=== PATIENT | female | born 1950 | race Caucasian/White ===

== ENCOUNTER 2018-06-11 17:29 | Inpatient (IN) | payer MEDICARE, MEDICAID ==
[~2018-06-11] VITALS: Ht 162.6 cm; Wt 54.5 kg
[2018-06-11] MEDS ORDERED: TOPI25 PO (17:43)
[2018-06-11] MEDS ORDERED: BACL10TA PO (17:43)
[2018-06-11] MEDS ORDERED: PARO10TA89 PO (17:43)
[2018-06-11] MEDS ORDERED: LEVE500T53 PO (17:43)
[2018-06-11] MEDS ORDERED: LORA0.5T2 PO (17:43)
[2018-06-11] MEDS ORDERED: ZOLP10TA7 PO (17:43)
[2018-06-11] MEDS ORDERED: AMIT10TA6 PO (17:43)
[2018-06-11 18:20] LABS: BASOPHILS % (AUTO) 0.6 % (0.0-2.0); EOSINOPHILS % (AUTO) 0.7 % (1.0-6.0); HEMATOCRIT 39.9 % (36-46); HEMOGLOBIN 13.5 g/dL (12.0-16.0); LYMPHOCYTES # (AUTO) 4.2 K/uL (1.0-4.8); LYMPHOCYTES % (AUTO) 59.5 % (22.0-44.0); MEAN CORPUSCULAR HEMOGLOBIN 31.5 pg (26.0-34.0); MEAN CORPUSCULAR HGB CONC 33.8 G/dL (31.0-37.0); MEAN CORPUSCULAR VOLUME 93 fL (80-100); MONOCYTES # (AUTO) 0.4 K/uL (0.1-1.0); MONOCYTES % (AUTO) 5.3 % (2.0-9.0); NEUTROPHILS # (AUTO) 2.4 K/uL (1.8-7.7); NEUTROPHILS % (AUTO) 33.9 % (40.0-70.0); PLATELET COUNT (AUTO) 212 K/uL (150-450); RED BLOOD CELL COUNT(AUTO) 4.29 MIL/uL (4.00-5.20)
[2018-06-11 18:34] LABS: ANION GAP 13 mmol/L (8-16); CALCIUM, TOTAL 9.8 mg/dL (8.8-10.5); CARBON DIOXIDE 23 mmol/L (22-29); CHLORIDE 105 mmol/L (98-107); CREATININE 0.81 mg/dL (0.60-1.30); GLOMERULAR FILTR. RATE CALC > 60 mL/min (>60); GLUCOSE,RANDOM 100 mg/dL (70-110); POTASSIUM 3.2 mmol/L (3.5-5.1); SODIUM SERUM 141 mmol/L (136-145); UREA NITROGEN, BLOOD 12 mg/dL (7-18)
[2018-06-11 18:38] LABS: ALANINE AMINOTRANSFERASE 23 U/L (12-78); ALKALINE PHOSPHATASE 127 U/L (46-116); ASPARTATE AMINOTRANSFERASE 18 U/L (15-37); BILIRUBIN,TOTAL 0.3 mg/dL (0.1-1.0); TOTAL PROTEIN, SERUM 7.4 g/dL (6.4-8.2)
[2018-06-11] MEDS ORDERED: POTASSIUM CHLORIDE 20 MEQ ER TABLET PO ONE (19:15)
[2018-06-11] MEDS ORDERED: LORazepam 1 MG TABLET PO ONE (20:30)
[2018-06-11] MEDS ORDERED: ZOLPIDEM TARTRATE 10 MG TABLET PO PRN (23:45)
[2018-06-12 02:06] LABS: APPEARANCE,URINE CLOUDY (CLEAR); BILIRUBIN,URINE NEGATIVE (NEGATIVE); GLUCOSE, URINE (UA) NEGATIVE (NEGATIVE); KETONES,URINE NEGATIVE (NEGATIVE); LEUKOCYTE ESTERASE ,URINE TRACE (NEGATIVE); NITRATE,URINE NEGATIVE (NEGATIVE); OCCULT BLOOD,URINE SMALL (NEGATIVE); PROTEIN,URINE NEGATIVE (NEGATIVE); UROBILINOGEN,URINE 0.2 mg/dL (<=1.0)
[2018-06-12 02:14] LABS: BACTERIA,URINE Few /HPF (None Seen); SQUAMOUS EPITHELIAL CELL,UR Moderate /LPF (None Seen)
[2018-06-12 02:29] VITALS: BP 130/72
[2018-06-12] MEDS ORDERED: PNEUMOCOCCAL VACCINE POLYVALENT 0.5 ML VIAL [PPSV23] IM ONE (02:45)
[2018-06-12 06:27] LABS: CHOL/HDL RATIO 2.5 (3.9-5.7)
[2018-06-12 06:53] LABS: AMPHET/METH SCREEN,URINE NEGATIVE (NEGATIVE); BARBITURATE SCREEN, URINE NEGATIVE (NEGATIVE); BENZODIAZEPINES SCREEN,URINE NEGATIVE (NEGATIVE); CANNABINOID SCREEN,URINE NEGATIVE (NEGATIVE); COCAINE SCREEN,URINE NEGATIVE (NEGATIVE); METHADONE SCREEN, URINE NEGATIVE (NEGATIVE); OPIATE SCREEN,URINE NEGATIVE (NEGATIVE); PHENCYCLIDINE SCREEN,URINE NEGATIVE (NEGATIVE)
[2018-06-12] MEDS: LORazepam 2 MG TABLET PO PRN ×3 (07:27→20:09)
[2018-06-12 08:00] VITALS: BP 121/71
[2018-06-12] MEDS ORDERED: ACETAMINOPHEN 325 MG TABLET PO PRN (08:15)
[2018-06-12] MEDS ORDERED: IBUPROFEN 600 MG TABLET PO PRN (08:15)
[2018-06-12] MEDS ORDERED: ALBUTEROL SULFATE HFA 90 MCG/PUFF 8 GM INHALER IH PRN (08:15)
[2018-06-12] MEDS ORDERED: ONDANSETRON HCL 4 MG TABLET PO PRN (08:15)
[2018-06-12] MEDS ORDERED: LOPERAMIDE HCL 2 MG CAPSULE PO PRN (08:15)
[2018-06-12] MEDS ORDERED: BACITRACIN 28.4 GM OINTMENT TP PRN (08:15)
[2018-06-12] MEDS ORDERED: BENZOCAINE/MENTHOL LOZENGE MM PRN (08:15)
[2018-06-12] MEDS ORDERED: MAG HYDROX/AL HYDROX/SIMETH ES 30 ML SUSPENSION UDCUP PO PRN (08:15)
[2018-06-12] MEDS ORDERED: CloNIDine HCL 0.1 MG TABLET PO PRN (08:15)
[2018-06-12] MEDS ORDERED: MAGNESIUM HYDROXIDE SUSPENSION 30 ML UDCUP PO PRN (08:15)
[2018-06-12] MEDS ORDERED: PETROLATUM,WHITE 28 GM JELLY TP PRN (08:15)
[2018-06-12] MEDS: LevETIRAcetam 500 MG TABLET PO SCH ×2 (10:20→16:57)
[2018-06-12] MEDS: TOPIRAMATE 25 MG TABLET PO SCH ×2 (10:20→16:57)
[2018-06-12 17:21] VITALS: BP 129/74
[2018-06-12] MEDS: HALOPERIDOL 5 MG TABLET PO PRN (20:09)
[2018-06-12] MEDS: BACLOFEN 10 MG TABLET PO SCH (20:10)
[2018-06-13] MEDS: TOPIRAMATE 25 MG TABLET PO SCH ×2 (08:12→16:52)
[2018-06-13] MEDS: LevETIRAcetam 500 MG TABLET PO SCH ×2 (08:12→16:52)
[2018-06-13 08:15] VITALS: BP 113/66
[2018-06-13 16:08] VITALS: BP 134/72
[2018-06-13] MEDS: HALOPERIDOL 5 MG TABLET PO PRN (16:56)
[2018-06-13] MEDS: LORazepam 2 MG TABLET PO PRN (16:56)
[2018-06-13] MEDS: BACLOFEN 10 MG TABLET PO SCH (20:01)
[2018-06-14] MEDS: LevETIRAcetam 500 MG TABLET PO SCH ×2 (08:37→16:51)
[2018-06-14] MEDS: TOPIRAMATE 25 MG TABLET PO SCH ×2 (08:37→16:51)
[2018-06-14] MEDS: LORazepam 2 MG TABLET PO PRN (08:41)
[2018-06-14 08:54] VITALS: BP 103/68
[2018-06-14] MEDS: LORazepam 1 MG TABLET PO SCH ×2 (13:41→16:51)
[2018-06-14] MEDS: PARoxetine HCL 10 MG TABLET PO SCH (14:24)
[2018-06-14 16:12] VITALS: BP 113/55
[2018-06-14] MEDS: ZOLPIDEM TARTRATE 10 MG TABLET PO SCH (20:23)
[2018-06-14] MEDS: BACLOFEN 10 MG TABLET PO SCH (20:24)
[2018-06-15] MEDS: LevETIRAcetam 500 MG TABLET PO SCH ×2 (08:11→16:50)
[2018-06-15] MEDS: TOPIRAMATE 25 MG TABLET PO SCH ×2 (08:11→16:50)
[2018-06-15] MEDS: LORazepam 1 MG TABLET PO SCH ×3 (08:11→16:50)
[2018-06-15] MEDS: PARoxetine HCL 10 MG TABLET PO SCH (08:11)
[2018-06-15 13:16] VITALS: BP 108/61
[2018-06-15 16:26] VITALS: BP 125/65
[2018-06-15] MEDS: ZOLPIDEM TARTRATE 10 MG TABLET PO SCH (20:07)
[2018-06-15] MEDS: BACLOFEN 10 MG TABLET PO SCH (20:07)
[2018-06-16] MEDS: PARoxetine HCL 10 MG TABLET PO SCH (08:00)
[2018-06-16] MEDS: TOPIRAMATE 25 MG TABLET PO SCH (08:00)
[2018-06-16] MEDS: LevETIRAcetam 500 MG TABLET PO SCH (08:00)
[2018-06-16] MEDS ORDERED: LORazepam 1 MG TABLET PO SCH (09:00)
[2018-06-16 10:57] VITALS: BP 106/72
== END 2018-06-16 14:26 | disposition home or self-care (01) | DRG 885 ==
LOC: EMS 17:32 → 3EC 23:30
PROVIDERS: ADMIT Psychiatry & Neurology Psychiatry; ATTEND Psychiatry & Neurology Psychiatry
DX: F31.81 Bipolar II disorder (principal); E87.6 Hypokalemia; G40.909 Epilepsy, unspecified, not intractable, without status epilepticus; G47.00 Insomnia, unspecified; K21.9 Gastro-esophageal reflux disease without esophagitis; M19.90 Unspecified osteoarthritis, unspecified site; Z91.14 Patient's other noncompliance with medication regimen
CPT/HCPCS: 80307; 84132; 93005; G0480